=== PATIENT | male | born 1945 | race Two or more races ===

== ENCOUNTER 2020-04-27 13:02 | Inpatient (IN) | payer OTHER ==
[~2020-04-27] VITALS: Ht 182.9 cm; Wt 90.7 kg
[2020-04-27] MEDS ORDERED: SYNTHROID175 MCG PO (13:24)
[2020-04-30] MEDS ORDERED: DUI500 PO (13:30)
[2020-04-30] MEDS ORDERED: PERCOCET 5-3251 EACH PO (13:30)
== END 2020-04-30 17:59 | DRG 908 ==
LOC: ER 13:02 → SURH 17:12
PROVIDERS: ADMIT Orthopaedic Surgery; ATTEND Orthopaedic Surgery
PROC: 3E10X8Z Irrigation of Skin and Mucous Membranes using Irrigating Substance (ICD-10-PCS; 2020-04-28)
PROC: 0YQ9XZZ Repair Right Lower Extremity, External Approach (ICD-10-PCS; principal; 2020-04-28 06:30)
PROC: 30233N1 Transfusion of Nonautologous Red Blood Cells into Peripheral Vein, Percutaneous Approach (ICD-10-PCS; 2020-04-29)
DX: T81.31XA Disruption of external operation (surgical) wound, not elsewhere classified, initial encounter (principal); D62 Acute posthemorrhagic anemia; E03.9 Hypothyroidism, unspecified; Z20.828 Contact with and (suspected) exposure to other viral communicable diseases